=== PATIENT | female | born 1950 ===

== ENCOUNTER 2024-04-08 14:21 | Outpatient (REF) | payer BC, SELFPAY ==
[2024-04-08 21:49] LABS: HCT 41.2 % (36.0-46.0); HGB 13.2 g/dL (11.2-15.7); MCV 87 fL (80-95); MPV 10.3 fL (8.0-11.0); Platelet Count 309 10^3/uL (130-400); RBC 4.72 10^6/uL (3.93-5.22); RDW 14.6 % (11.7-14.6); RDW-SD 46.5 fL; WBC 9.72 10^3/uL (4.4-10.8)
[2024-04-08 22:02] LABS: ALT 15 U/L (14-59); AST 17 U/L (15-37); Albumin 3.6 g/dL (3.4-5.0); Alkaline Phosphatase 75 U/L (46-116); Anion Gap 9.3 mmol/L (3-11); BUN 14 mg/dL (7-18); Bilirubin, Total 0.48 mg/dL (0.2-1.0); CO2 27.7 mmol/L (21.0-32.0); CREATININE 0.8 mg/dL (0.55-1.02); Calcium 9.5 mg/dL (8.5-10.1); Calculated LDL 143 mg/dL (<100); Chloride 105 mmol/L (98-107); Cholesterol 214 mg/dL (<200); Estimated GFR 77.27 (mL/min/1.73m2); Glucose 101 mg/dL (74-106); HDL Cholesterol 46 mg/dL (40-60); Potassium 4.1 mmol/L (3.5-5.1); Sodium 142 mmol/L (136-145); TSH 2.89 uIU/Ml (0.36-3.74); Triglyceride 126 mg/dL (<150)
== END 2024-04-08 14:22 | disposition home or self-care (01) ==
LOC: NCHCN 14:21
PROVIDERS: Visit Provider Family Medicine
DX: Z13.0 Encounter for screening for diseases of the blood and blood-forming organs and certain disorders involving the immune mechanism (principal); R13.10 Dysphagia, unspecified; M06.9 Rheumatoid arthritis, unspecified; Z13.220 Encounter for screening for lipoid disorders
CPT/HCPCS: 80053; 80061; 85027; 84443

== ENCOUNTER 2025-04-12 16:26 | Outpatient (REF) | payer BC, SELFPAY ==
[2025-04-12 15:59] LABS: HCT 41.3 % (36.0-46.0); HGB 13.3 g/dL (11.2-15.7); MCH 28.6 pg (27.0-33.0); MCHC 32.2 % (32.0-36.0); MCV 89 fL (80-95); MPV 10.8 fL (8.0-11.0); Platelet Count 238 10^3/uL (130-400); RBC 4.65 10^6/uL (3.93-5.22); RDW 12.9 % (11.7-14.6); RDW-SD 42.1 fL; WBC 7.31 10^3/uL (4.4-10.8)
[2025-04-12 16:30] LABS: ALT 11 U/L (14-59); AST 20 U/L (15-37); Albumin 3.5 g/dL (3.4-5.0); Alkaline Phosphatase 87 U/L (46-116); Anion Gap 6.8 mmol/L (3-11); BUN 12 mg/dL (7-18); Bilirubin, Total 0.5 mg/dL (0.2-1.0); CO2 30.2 mmol/L (21.0-32.0); Calcium 9.6 mg/dL (8.5-10.1); Calculated LDL 163 mg/dL (<100); Chloride 103 mmol/L (98-107); Cholesterol 232 mg/dL (<200); Estimated GFR 76.79 (mL/min/1.73m2); Glucose 89 mg/dL (74-106); HDL Cholesterol 45 mg/dL (>or=50); Potassium 4.7 mmol/L (3.5-5.1); Sodium 140 mmol/L (136-145); TSH 3.01 uIU/mL (0.36-3.74); Total Protein 6.8 g/dL (6.4-8.2); Triglyceride 123 mg/dL (<150)
== END 2025-04-12 16:27 | disposition home or self-care (01) ==
LOC: NCHCN 16:26
PROVIDERS: Visit Provider Family Medicine
DX: I48.91 Unspecified atrial fibrillation (principal); I48.92 Unspecified atrial flutter; E78.5 Hyperlipidemia, unspecified; E66.9 Obesity, unspecified; R53.83 Other fatigue
CPT/HCPCS: 80053; 80061; 85027; 84443